=== PATIENT | female | born 1930 | race Caucasian/White ===

== ENCOUNTER 2018-05-31 15:01 | Emergency (ER) | payer MEDICARE, BC ==
[2018-05-31] MEDS ORDERED: ONDANSETRON HCL INJ/PF 4 MG/2 ML SDV IV ONE (15:20)
[2018-05-31] MEDS ORDERED: MORPHINE SULFATE 10 MG/ML INJ IV ONE (15:20)
[2018-05-31 16:00] LABS: ABSOLUTE EOSINOPHILS # (AUTO) 0.1 10^3/uL (0.0-0.6); ABSOLUTE MONOCYTES (AUTO) 0.5 10^3/uL (0.1-1.4); ABSOLUTE NEUT (AUTO) 3.1 10^3/uL (1.7-8.2); BASOPHILS % (AUTO) 0.9 % (0-2); EOSINOPHILS % (AUTO) 1.6 % (0-6); HEMATOCRIT 34.4 % (36.0-47.0); LYMPHOCYTES % (AUTO) 34.4 % (13-45); MEAN CORPUSCULAR HEMOGLOBIN 30.7 pg (27.0-33.4); MEAN CORPUSCULAR HGB CONC 34.7 g/dL (32.0-36.0); MEAN CORPUSCULAR VOLUME 88 fl (80-97); MONOCYTES % (AUTO) 9.2 % (3-13); PLATELET COUNT 230 10^3/uL (150-450); RED CELL DISTRIBUTION WIDTH 13.8 % (11.5-14.0); SEGMENTED NEUTROPHILS % (AUTO) 53.9 % (42-78); TOTAL CELLS COUNTED % (AUTO) 100 %; WHITE BLOOD COUNT 5.8 10^3/uL (4.0-10.5)
--- NOTE | 2018-05-31 16:14 | ER Document Report ---
ED General - General Chief Complaint: Abdominal Pain Stated Complaint: RIGHT SIDE PAIN Time Seen by Provider: 05/31/18 15:15 Mode of Arrival: Ambulatory Information source: Patient Notes: 88-year-old female with hyperthyroidism, hypertension, known AAA presents with complaint of right lower quadrant abdominal pain that started 1 day prior to arrival. Patient describes the pain as throbbing, stabbing without radiation. Patient denies any fever, chills, nausea, vomiting, chest pain, shortness of breath, back pain headache, weakness, difficulty with ambulation, slurred speech. Patient does state that she has not had a bowel movement in several days which is not normal for her. She is not currently taking any narcotic medications. Patient has not been seen by her vascular surgeon for approximately 1 year. She states that "he is too far away". - HPI Onset: Yesterday Onset/Duration: Gradual, Persistent Quality of pain: Stabbing Severity: Mild Associated symptoms: denies: Chest pain, Diarrhea, Nausea, Vomiting, Shortness of breath, Weakness Exacerbated by: Denies Relieved by: Denies Similar symptoms previously: Yes Recently seen / treated by doctor: No - Related Data Allergies/Adverse Reactions: iodine [Iodine] Allergy (Severe, Verified 05/31/18 15:03) Hives levofloxacin [From Levaquin] Allergy (Severe, Verified 05/31/18 15:03) tendonitis Shellfish * [Shellfish] Allergy (Severe, Verified 05/31/18 15:03) rash latex [Latex] Allergy (Verified 05/31/18 15:03) RED RASH/ITCHES Penicillins Allergy (Verified 05/31/18 15:03) Hives ivp dye Allergy (Severe, Uncoded 05/31/18 15:03) rash Past Medical History - General Information source: Patient, [facility] Records - Social History Smoking Status: Never Smoker Chew tobacco use (# tins/day): No Frequency of alcohol use: Rare Drug Abuse: None Lives with: Family Family History: Reviewed & Not Pertinent Patient has suicidal ideation: No Patient has homicidal ideation: No - Past Medical History Cardiac Medical History: Reports: Hx Hypertension - since 2003 Denies: Hx Coronary Artery Disease, Hx Heart Attack Pulmonary Medical History: Reports: Hx Bronchitis - 1 MONTH AGO...RESOLVED Denies: Hx Asthma, Hx COPD, Hx Pneumonia Neurological Medical History: Denies: Hx Cerebrovascular Accident, Hx Seizures Renal/ Medical History: Denies: Hx Peritoneal Dialysis GI Medical History: Reports: Hx Hiatal Hernia. Denies: Hx Hepatitis, Hx Ulcer Musculoskeletal Medical History: Reports Hx Arthritis Infectious Medical History: Denies: Hx Hepatitis Past Surgical History: Reports: Hx Cholecystectomy. Denies: Hx Mastectomy, Hx Open Heart Surgery, Hx Pacemaker - Immunizations Hx Diphtheria, Pertussis, Tetanus Vaccination: No Hx Pneumococcal Vaccination: 05/23/09 Review of Systems - Review of Systems Notes: PHYSICAL EXAMINATION: GENERAL: Well-appearing, well-nourished and in no acute distress. HEAD: Atraumatic, normocephalic. EYES: Pupils equal round and reactive to light, extraocular movements intact, conjunctiva are normal. ENT: Nares patent, oropharynx clear without exudates. Moist mucous membranes. NECK: Normal range of motion, supple without lymphadenopathy LUNGS: Breath sounds clear to auscultation bilaterally and equal. No wheezes rales or rhonchi. HEART: Regular rate and rhythm without murmurs ABDOMEN: Soft, nontender, nondistended abdomen. No guarding, no rebound. No masses appreciated. No pulsatile mass Female : Multiple nonthrombosed external hemorrhoids, no active bleeding. Brown stool which is occult negative Musculoskeletal: Normal range of motion, no pitting or edema. No cyanosis. NEUROLOGICAL: Cranial nerves grossly intact. Normal speech, normal gait. Normal sensory, motor exams PSYCH: Normal mood, normal affect. SKIN: Warm, Dry, normal turgor, no rashes or lesions noted. Physical Exam - Vital signs Vitals: Temp Pulse Resp BP Pulse Ox 98.2 F 58 L 18 131/73 H 99 05/31/18 15:15 05/31/18 15:15 05/31/18 15:15 05/31/18 15:15 05/31/18 15:15 Course - Re-evaluation Re-evalutation: Laboratory 05/31/18 05/31/18 05/31/18 15:48 15:48 17:06 WBC 5.8 RBC 3.90 Hgb 12.0 Hct 34.4 L MCV 88 MCH 30.7 MCHC 34.7 RDW 13.8 Plt Count 230 Seg Neutrophils % 53.9 Lymphocytes % 34.4 Monocytes % 9.2 Eosinophils % 1.6 Basophils % 0.9 Absolute Neutrophils 3.1 Absolute Lymphocytes 2.0 Absolute Monocytes 0.5 Absolute Eosinophils 0.1 Absolute Basophils 0.0 Sodium 136.8 L Potassium 4.1 Chloride 100 Carbon Dioxide 31 H Anion Gap 6 BUN 13 Creatinine 0.95 Est GFR ( Amer) > 60 Est GFR (Non-Af Amer) 56 L Glucose 90 Calcium 9.4 Total Bilirubin 1.4 H Direct Bilirubin 0.2 Neonat Total Bilirubin Not Reportable Neonat Direct Bilirubin Not Reportable Neonat Indirect Bili Not Reportable AST 30 ALT 14 Alkaline Phosphatase 83 Total Protein 7.7 Albumin 4.3 Lipase 70.9 Urine Color YELLOW Urine Appearance CLEAR Urine pH 6.0 Ur Specific [place] 1.017 Urine Protein NEGATIVE Urine Glucose (UA) NEGATIVE Urine Ketones NEGATIVE Urine Blood NEGATIVE Urine Nitrite NEGATIVE Urine Bilirubin NEGATIVE Urine Urobilinogen NEGATIVE Ur Leukocyte Esterase NEGATIVE Urine WBC (Auto) 1 Urine RBC (Auto) 0 Squamous Epi Cells Auto 1 Urine Ascorbic Acid NEGATIVE Abdomen/Pelvis CTA 05/31/18 16:02 IMPRESSION: 4.8 cm aneurysm of the infrarenal abdominal aorta. This is minimally larger than on the earlier study there is no evidence of bleeding. There is no dissection. 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 Chest/Abdomen CTA 05/31/18 16:02 IMPRESSION: 1. The thoracic aorta and the pulmonary arteries are normal. There is no aneurysm or dissection. There is no pulmonary embolus. 2. Prominent, heterogeneous left lobe of the thyroid gland. Temp Pulse Resp BP Pulse Ox 98.2 F 54 L 18 124/58 L 99 05/31/18 15:15 05/31/18 18:54 05/31/18 18:54 05/31/18 18:54 05/31/18 18:54 88-year-old female with hyperthyroidism, hypertension, known AAA presents with complaint of right lower quadrant abdominal pain that started 1 day prior to arrival. Patient describes the pain as throbbing, stabbing without radiation. Arrival vital signs stable. Patient does not appear toxic, dehydrated and she is in no acute distress. Patient has some mild discomfort in the right lower quadrant but reports history of appendectomy. Patient has a known AAA but states that she has not been evaluated by her vascular surgeon in a long time. Bedside ultrasound was performed and showed a an abdominal aortic aneurysm with greatest measurement of 4.4 cm. CTA of the chest abdomen pelvis was obtained and showed the aneurysm to be 4.8, infrarenal, mildly larger than earlier study without evidence of bleeding. She does not have evidence of dissection. Patient did not initially reports that she was having rectal bleeding but a rectal exam was performed which showed multiple external hemorrhoids with occult negative stool. Patient is alert, awake, very pleasant. When I brought up with the possibility of admission patient states that "I cannot do that right now I need to prepare myself". We were able to figure out that the patient's vascular surgeon is Dr. Mayes who our surgeons often use for vascular coverage. She was urged that she needs follow-up. She was also recommended to start MiraLAX for her constipation which she states she already has at home. Patient encouraged to return with any concerning symptoms. Patient was evaluated and treated as appropriate for the patient's presenting symptoms and complaint, with consideration of any critical or life threatening conditions that may be associated with their obtained history and exam as noted above. All results were discussed with patient. Patient provided the opportunity to ask questions, and express concerns. Patient was educated on treatments based on their presumed diagnosis as noted above. At this time we will discharge the patient with return precautions and follow-up recommendations. Verbal discharge instructions given a the bedside. Medication warnings reviewed. Patient is in agreement with this plan and has verbalized understanding of return precautions. After careful consideration I feel that that patient can be safely discharged from the emergency department, they were advised to followup with a primary care physician in 2-3 days. Dictation on this chart was performed using voice recognition software and may result in unintended grammatical, spelling, syntax or errors. 05/31/18 18:34 Patient's stool occult negative. 06/01/18 02:27 06/01/18 02:28 - Vital Signs Vital signs: Temp Pulse Resp BP Pulse Ox 98.2 F 54 L 18 124/58 L 99 05/31/18 15:15 05/31/18 18:54 05/31/18 18:54 05/31/18 18:54 05/31/18 18:54 - Laboratory Result Diagrams: 05/31/18 15:48 05/31/18 15:48 Laboratory results interpreted by me: 05/31/18 05/31/18 15:48 15:48 Hct 34.4 L Sodium 136.8 L Carbon Dioxide 31 H Est GFR (Non-Af Amer) 56 L Total Bilirubin 1.4 H - Diagnostic Test Radiology reviewed: Image reviewed, Reports reviewed Procedures - Ultrasound/Bedside Ultrasound/Bedside Time completed: 16:15 - Patient's aorta image at the bedside with a maximum diameter of 4.39. Ultrasound: Abnormal aorta Discharge - Discharge Clinical Impression: RLQ abdominal pain, External hemorrhoid AAA (abdominal aortic aneurysm) Qualifiers: Presence of rupture: without rupture Qualified Code(s): I71.4 - Abdominal aortic aneurysm, without rupture Constipation Qualifiers: Constipation type: other constipation type Qualified Code(s): K59.09 - Other constipation Condition: Good Disposition: HOME, SELF-CARE Instructions: Abdominal Pain ([facility]), Aortic Aneurysm ([facility]), Constipation ([facility]), Hemorrhoids ([facility]) Additional Instructions: Please follow-up with your vascular surgeon Dr. Bundy in the next 3-5 days. You have been provided your recent imaging studies. Please return if you experience worsening abdominal pain, rectal bleeding or any other symptoms that you are concerned about. Referrals: NINI RAPP MD [Primary Care Provider] - Follow up as needed
[2018-05-31 16:19] LABS: ALANINE AMINOTRANSFERASE 14 U/L (9-52); ALBUMIN 4.3 g/dL (3.5-5.0); ALKALINE PHOSPHATASE 83 U/L (38-126); ANION GAP 6 (5-19); ASPARTATE AMINO TRANSFERASE 30 U/L (14-36); BILIRUBIN,DIRECT 0.2 mg/dL (0.0-0.4); BILIRUBIN,TOTAL 1.4 mg/dL (0.2-1.3); BLOOD UREA NITROGEN 13 mg/dL (7-20); CALCIUM 9.4 mg/dL (8.4-10.2); CARBON DIOXIDE 31 mmol/L (22-30); CHLORIDE 100 mmol/L (98-107); GLUCOSE 90 mg/dL (75-110); LIPASE 70.9 U/L (23-300); POTASSIUM 4.1 mmol/L (3.6-5.0); SODIUM 136.8 mmol/L (137-145); TOTAL PROTEIN 7.7 g/dL (6.3-8.2)
[2018-05-31] MEDS ORDERED: DEXTROSE 50%-WATER 25 GM/50 ML DISP.SYRIN IV ONE (16:31)
[2018-05-31 17:27] LABS: APPEARANCE,URINE CLEAR; BILIRUBIN,URINE NEGATIVE (NEGATIVE); COLOR,URINE YELLOW; GLUCOSE, URINE NEGATIVE (NEGATIVE); KETONES,URINE NEGATIVE (NEGATIVE); LEUKOCYTE ESTERASE,URINE NEGATIVE (NEGATIVE); NITRITE,URINE NEGATIVE (NEGATIVE); PROTEIN,URINE NEGATIVE (NEGATIVE); URINE SPECIFIC GRAVITY 1.017; UROBILINOGEN,URINE NEGATIVE mg/dL (<2.0)
--- NOTE | 2018-05-31 17:39 | RADIOLOGY REPORT (SQ) ---
EXAM DESCRIPTION: CTA CHEST COMPLETED DATE/TIME: 05/31/2018 4:56 pm REASON FOR STUDY: abd pain known aaa COMPARISON: None. TECHNIQUE: CT scan of the chest performed using helical scanning technique with dynamic intravenous contrast injection. Images reviewed with lung, soft tissue and bone windows. Reconstructed coronal and sagittal MPR images reviewed. Additional 3 dimensional post-processing performed to develop Maximal Intensity Projection images (AZ P). All images stored on PACS. All CT scanners at this facility use dose modulation, iterative reconstruction, and/or weight based d osing when appropriate to reduce radiation dose to as low as reasonably achievable (ALARA). [facility]: Dose Right [facility]: CareDose [facility]: Dose Right [facility]: Teradose 4D [facility]: [employer] CONTRAST TYPE AND DOSE: 100 mL Omnipaque 350- low osmolar. Contrast bolus adequate for pulmonary arteries and aorta. RENAL FUNCTION: BUN 13 creatinine 0.95 RADIATION DOSE: . LIMITATIONS: None. FINDINGS: LUNGS AND PLEURA: No masses, infiltrates, or pneumothorax. No pleural effusions or pleura l calcifications. AORTA AND GREAT VESSELS: No aneurysm. No dissection. HEART: No pericardial effusion. Moderate to marked coronary artery calcifications. PULMONARY ARTERIES: No emboli visualized in the main pulmonary arteries or the segmental branches. HILAR AND MEDIASTINAL STRUCTURES: No identified masses or abnormal nodes. HARDWARE: None in the chest. UPPER ABDOMEN: See separate report of the CT of the abdomen. THYROID AND OTHER SOFT TISSUES: The left lobe of the thyroid is prominent and heterogeneous. BONES: No acute finding. 3D MIPS: Confirm above findings. OTHER: No other significant finding. IMPRESSION: 1. The thoracic aorta and the pulmonary arteries are normal. There is no aneurysm or d issection. There is no pulmonary embolus. 2. Prominent, heterogeneous left lobe of the thyroid gland. COMMENT: Quality ID # [id number]: Final reports with documentation of one or more dose reduction techniques (e.g., Automated exposure control, adjustment of the mA and/or kV according to patient size, use of iterative reconstruction technique) TECHNICAL DOCUMENTATION: JOB ID: [id number] [employer]- All Rights Reserved Reading location - IP/workstation name: [email or web address]
--- NOTE | 2018-05-31 17:53 | RADIOLOGY REPORT (SQ) ---
EXAM DESCRIPTION: CTA ABDOMEN/PELVIS W WO COMPLETED DATE/TIME: 05/31/2018 4:56 pm REASON FOR STUDY: abd pain known aaa COMPARISON: 12/25/2013 TECHNIQUE: CT scan of the abdominal aorta extending to the iliac bifurcation performed with intraven ous and oral contrast using helical scanning technique with dynamic intravenous contrast injection. I mages reviewed with lung, soft tissue, and bone windows. Reconstructed coronal and sagittal MPR image s reviewed. All images stored on PACS. Advanced 3D imaging as volume rendering, MIPS, SSD performed? yes All CT scanners at this facility use dose modulation, iterative reconstruction, and/or weight based d osing when appropriate to reduce radiation dose to as low as reasonably achievable (ALARA). [facility]: Dose Right [facility]: CareDose [facility]: Dose Right [facility]: Teradose 4D [facility]: [employer] CONTRAST TYPE AND DOSE: contrast/concentration: Isovue 350.00 mg/ml; Total Contrast Delivered: 100.0 ml; Total Saline Delivered: 90.0 ml 100 mL Omnipaque 350- low osmolar. RENAL FUNCTION: BUN 13 creatinine 0.95 LIMITATIONS: None. FINDINGS: AORTA AND VESSELS: There is a 48.3 mm aneurysm of the infrarenal abdominal aorta. This na rrows to a normal caliber at the bifurcation. There is no dissection. There is no evidence of bleed ing. 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 LUNG BASES: See separate report for CT of the chest LIVER: Normal size. No masses or dilated ducts. SPLEEN: Normal size. No focal lesions. PANCREAS: No masses. No significant calcifications. No adjacent inflammation or peripancreatic fluid collections. Pancreatic duct not dilated. GALLBLADDER: Surgically absent. ADRENAL GLANDS: No significant masses or asymmetry. RIGHT KIDNEY AND URETER: No mass, calculi or urinary tract obstruction. LEFT KIDNEY AND URETER: No mass, calculi or urinary tract obstruction. RETROPERITONEUM: No retroperitoneal adenopathy, hemorrhage or masses. BOWEL AND PERITONEAL CAVITY: No masses or inflammatory changes. No free fluid or peritoneal masses. APPENDIX: Surgically absent. ABDOMINAL WALL: No masses. No hernias. BONY STRUCTURES: No acute findings. 3-D IMAGING: Confirms the above findings. OTHER: No other significant finding. IMPRESSION: 4.8 cm aneurysm of the infrarenal abdominal aorta. This is minimally larger than on the earlier study there is no evidence of bleeding. There is no dissection. 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 TECHNICAL DOCUMENTATION: JOB ID: [id number] Quality ID # [id number]: Final reports with documentation of one or more dose reduction techniques (e.g., Au tomated exposure control, adjustment of the mA and/or kV according to patient size, use of iterative reconstruction technique) 2010 [employer]- All Rights Reserved Reading location - IP/workstation name: [email or web address]
[2018-05-31 18:55] VITALS: BP 124/58
== END 2018-05-31 18:55 | disposition home or self-care (01) ==
LOC: ER 15:01
DX: K59.00 Constipation, unspecified (principal); I71.4 Abdominal aortic aneurysm, without rupture; R10.31 Right lower quadrant pain; K64.4 Residual hemorrhoidal skin tags; I10 Essential (primary) hypertension; Z88.1 Allergy status to other antibiotic agents; Z91.013 Allergy to seafood; Z91.040 Latex allergy status; Z91.041 Radiographic dye allergy status; Z90.49 Acquired absence of other specified parts of digestive tract
CPT/HCPCS: 99284; 96372; 96374; 96375; 36415; 83690; 85025; 80053; 81001; 71275; 74174; J3490; J2270; J2405

== ENCOUNTER 2019-11-14 13:40 | Emergency (ER) | payer MEDICARE, BC ==
--- NOTE | 2019-11-14 14:34 | ER Document Report ---
ED General - General Chief Complaint: Sore Throat Stated Complaint: SORE THROAT Time Seen by Provider: 11/14/19 14:07 Primary Care Provider: NICOLE GUERRERO MD [Primary Care Provider] - Follow up as needed Information source: Patient - HPI Onset: Other - over the last few days Onset/Duration: Gradual Quality of pain: Achy Severity: Moderate Pain Level: 2 Associated symptoms: Diarrhea, Sore throat Exacerbated by: Denies Relieved by: Denies Similar symptoms previously: No Recently seen / treated by doctor: No Notes: 89 year old female with a history of HTN and Arthritis here in the ER for several days of a sore throat, cough, abdominal pains, and painful diarrhea. The patient denies fevers or chills but she has had some sweats. The patient says she may have had one sick contact (someone with a cough who helps her around the house). The patient denies nausea, vomiting, urinary symptoms, blood in her stools. - Related Data Allergies/Adverse Reactions: iodine [Iodine] Allergy (Severe, Verified 05/31/18 15:03) Hives levofloxacin [From Levaquin] Allergy (Severe, Verified 05/31/18 15:03) tendonitis Shellfish * [Shellfish] Allergy (Severe, Verified 05/31/18 15:03) rash latex [Latex] Allergy (Verified 05/31/18 15:03) RED RASH/ITCHES Penicillins Allergy (Verified 05/31/18 15:03) Hives ivp dye Allergy (Severe, Uncoded 05/31/18 15:03) rash Past Medical History - General Information source: Patient - Social History Smoking Status: Never Smoker Frequency of alcohol use: None Drug Abuse: None Family History: Reviewed & Not Pertinent Patient has suicidal ideation: No Patient has homicidal ideation: No - Past Medical History Cardiac Medical History: Reports: Hx Hypertension - since 2003 Denies: Hx Coronary Artery Disease, Hx Heart Attack Pulmonary Medical History: Reports: Hx Bronchitis - 1 MONTH AGO...RESOLVED Denies: Hx Asthma, Hx COPD, Hx Pneumonia Neurological Medical History: Denies: Hx Cerebrovascular Accident, Hx Seizures Renal/ Medical History: Denies: Hx Peritoneal Dialysis GI Medical History: Reports: Hx Hiatal Hernia. Denies: Hx Hepatitis, Hx Ulcer Musculoskeletal Medical History: Reports Hx Arthritis Infectious Medical History: Denies: Hx Hepatitis Past Surgical History: Reports: Hx Cholecystectomy, Hx Hysterectomy. Denies: Hx Mastectomy, Hx Open Heart Surgery, Hx Pacemaker - Immunizations Hx Diphtheria, Pertussis, Tetanus Vaccination: No Hx Pneumococcal Vaccination: 05/23/09 Review of Systems - Review of Systems Constitutional: No symptoms reported EENT: Throat pain Cardiovascular: No symptoms reported Respiratory: No symptoms reported Gastrointestinal: Abdominal pain, Diarrhea Genitourinary: No symptoms reported Female Genitourinary: No symptoms reported Musculoskeletal: No symptoms reported Skin: No symptoms reported Hematologic/Lymphatic: No symptoms reported Neurological/Psychological: No symptoms reported -: Yes All other systems reviewed and negative Physical Exam - Vital signs Vitals: Temp Pulse Resp BP Pulse Ox 98.2 F 54 L 18 118/60 96 11/14/19 13:40 11/14/19 13:40 11/14/19 13:40 11/14/19 13:40 11/14/19 13:40 - Notes Notes: GENERAL: Well-appearing, well-nourished and in no acute distress. HEAD: Atraumatic, normocephalic. EYES: Pupils equal round and reactive to light, extraocular movements intact, sclera anicteric, conjunctiva are normal. ENT: External ears normal, nares patent, oropharynx clear without exudates. Moist mucous membranes. NECK: Normal range of motion, supple without lymphadenopathy or JVD. LUNGS: Breath sounds clear to auscultation bilaterally and equal. No wheezes rales or rhonchi. HEART: Regular rate and rhythm without murmurs, rubs or gallops. ABDOMEN: Soft, moderate tenderness, normoactive bowel sounds. No guarding, no rebound. No masses appreciated. EXTREMITIES: Normal range of motion, no pitting or edema. No clubbing or cyanosis. NEUROLOGICAL: Cranial nerves II through XII grossly intact. Normal speech, normal gait. PSYCH: Normal mood, normal affect. SKIN: Warm, Dry, normal turgor, no rashes or lesions noted. Course - Re-evaluation Re-evalutation: 11/15/19 05:44 The patient had no abnormalities on CT of her abdomen/pelvis. Patient's chest xray was clear. Patients rapid strep was negative. Patient told she may have viral syndrome causing her symptoms. She was told to drink plenty of fluids in the days to come and to follow up with her PCP if symptoms persisted. - Vital Signs Vital signs: Temp Pulse Resp BP Pulse Ox 98.1 F 51 L 18 167/68 H 96 11/14/19 18:45 11/14/19 18:45 11/14/19 18:45 11/14/19 18:45 11/14/19 18:45 - Laboratory Result Diagrams: 11/14/19 14:45 11/14/19 14:45 Laboratory results interpreted by me: 11/14/19 11/14/19 11/14/19 14:45 14:45 16:45 Hgb 11.8 L Hct 33.9 L Sodium 133.8 L Est GFR (MDRD) Non-Af 51 L Ur Leukocyte Esterase TRACE H - Diagnostic Test Radiology reviewed: Image reviewed, Reports reviewed Discharge - Discharge Clinical Impression: Pharyngitis Qualifiers: Pharyngitis/tonsillitis etiology: unspecified etiology Qualified Code(s): J02.9 - Acute pharyngitis, unspecified Abdominal pain Qualifiers: Abdominal location: lower abdomen, unspecified Qualified Code(s): R10.30 - Lower abdominal pain, unspecified Condition: Stable Disposition: HOME, SELF-CARE Instructions: Abdominal Pain ([facility]), Diarrhea, Nonspecific ([facility]), Sore Throat ([facility]), Viral Syndrome ([facility]) Additional Instructions: Drink plenty of fluids in the days to come. Use Tylenol and Motrin for abdominal pain. Use over the counter cough medication and sore throat medications as needed. Follow up with your primary care doctor if symptoms persist. Return to an ER for trouble breathing, uncontrolled pain, if you are worse in anyway. You tested negative for Strep Throat. Your CT scan showed no sign of an abdominal infection but your abdominal aortic aneursym has enlarged since 2013. Follow up with a Vascular Surgeon. Referrals: NICOLE GUERRERO MD [Primary Care Provider] - Follow up as needed
[2019-11-14 15:10] LABS: ABSOLUTE EOSINOPHILS # (AUTO) 0.1 10^3/uL (0.0-0.6); ABSOLUTE LYMPHOCYTES (AUTO) 1.3 10^3/uL (0.5-4.7); ABSOLUTE MONOCYTES (AUTO) 0.5 10^3/uL (0.1-1.4); ABSOLUTE NEUT (AUTO) 3.4 10^3/uL (1.7-8.2); BASOPHILS % (AUTO) 0.7 % (0-2); EOSINOPHILS % (AUTO) 1.7 % (0-6); HEMATOCRIT 33.9 % (36.0-47.0); HEMOGLOBIN 11.8 g/dL (12.0-15.5); LYMPHOCYTES % (AUTO) 24.6 % (13-45); MEAN CORPUSCULAR HEMOGLOBIN 30.6 pg (27.0-33.4); MEAN CORPUSCULAR HGB CONC 34.8 g/dL (32.0-36.0); MEAN CORPUSCULAR VOLUME 88 fl (80-97); MONOCYTES % (AUTO) 10.1 % (3-13); PLATELET COUNT 181 10^3/uL (150-450); RED BLOOD COUNT 3.87 10^6/uL (3.72-5.28); RED CELL DISTRIBUTION WIDTH 13.8 % (11.5-14.0); SEGMENTED NEUTROPHILS % (AUTO) 62.9 % (42-78); TOTAL CELLS COUNTED % (AUTO) 100 %; WHITE BLOOD COUNT 5.4 10^3/uL (4.0-10.5)
[2019-11-14 16:26] LABS: ALBUMIN 3.8 g/dL (3.5-5.0); ALKALINE PHOSPHATASE 43 U/L (38-126); ANION GAP 5 (5-19); ASPARTATE AMINO TRANSFERASE 20 U/L (14-36); BILIRUBIN,TOTAL 1.3 mg/dL (0.2-1.3); BLOOD UREA NITROGEN 19 mg/dL (7-20); CALCIUM 9.2 mg/dL (8.4-10.2); CARBON DIOXIDE 29 mmol/L (22-30); CHLORIDE 100 mmol/L (98-107); GLUCOSE 104 mg/dL (75-110); POTASSIUM 4.4 mmol/L (3.6-5.0); TOTAL PROTEIN 6.5 g/dL (6.3-8.2)
[2019-11-14 17:40] LABS: APPEARANCE,URINE CLEAR; BILIRUBIN,URINE NEGATIVE (NEGATIVE); COLOR,URINE YELLOW; GLUCOSE, URINE NEGATIVE (NEGATIVE); KETONES,URINE NEGATIVE (NEGATIVE); LEUKOCYTE ESTERASE,URINE TRACE (NEGATIVE); NITRITE,URINE NEGATIVE (NEGATIVE); PROTEIN,URINE NEGATIVE (NEGATIVE); URINE SPECIFIC GRAVITY 1.009; UROBILINOGEN,URINE NEGATIVE mg/dL (<2.0)
--- NOTE | 2019-11-14 18:06 | RADIOLOGY REPORT (SQ) ---
EXAM DESCRIPTION: CT ABD/PELVIS ORAL ONLY IMAGES COMPLETED DATE/TIME: 11/14/2019 4:45 pm REASON FOR STUDY: eval for diverticulitis COMPARISON: CT abdomen and pelvis, 12/25/2013. TECHNIQUE: CT scan of the abdomen and pelvis performed without intravenous or oral contrast. Images reviewed with lung, soft tissue, and bone windows. Reconstructed coronal and sagittal MPR images revi ewed. All images stored on PACS. All CT scanners at this facility use dose modulation, iterative reconstruction, and/or weight based d osing when appropriate to reduce radiation dose to as low as reasonably achievable (ALARA). [facility]: Dose Right [facility]: CareDose [facility]: Dose Right [facility]: Teradose 4D [facility]: Smart [employer] RADIATION DOSE: CT Rad equipment meets quality standard of care and radiation dose reduction techniq ues were employed. CTDIvol: 4.9 mGy. DLP: 237 mGy-cm.mGy. LIMITATIONS: None. FINDINGS: LOWER CHEST: Small subpleural nodules along the posterior right lower lobe are stable from prior. No focal consolidation or pleural effusion. NON-CONTRASTED LIVER, SPLEEN, ADRENALS: Evaluation limited by lack of IV contrast. No identified sign ificant masses. PANCREAS: No masses. No peripancreatic inflammatory changes. GALLBLADDER: Surgically absent. RIGHT KIDNEY AND URETER: No suspicious masses. Assessment limited by lack of IV contrast. No signif icant calcifications. No hydronephrosis or hydroureter. LEFT KIDNEY AND URETER: No suspicious masses. Assessment limited by lack of IV contrast. No signifi cant calcifications. No hydronephrosis or hydroureter. AORTA AND RETROPERITONEUM: There is an infrarenal abdominal aortic aneurysm which has increased in si ze from prior now measuring 5 x 4.7 cm and extending 6.7 cm cranial caudal. Previously this measured 0.7 x 4.5 cm on 12/25/2013. There is no periaortic fluid or inflammatory change. Extensive atheroscl erotic calcification of the aorta and iliac arteries. BOWEL AND PERITONEAL CAVITY: Status post right hemicolectomy with patent anastomosis. There is no sasha wel obstruction. No bowel wall thickening. No significant diverticular disease. No inflammatory ch iveth, free fluid or pneumoperitoneum. APPENDIX: Surgically absent. PELVIS, BLADDER, AND ABDOMINAL WALL:Post hysterectomy. Calcified pelvic phleboliths. Urinary bladde r has normal contour and appearance. No pelvic adenopathy. BONES: Kyphoplasty at T11 unchanged from prior. Multilevel spondylosis and degenerative disc disease . Schmorl's node superior endplate L3. Subchondral sclerosis and cystic change at the inferior endp late L5 and superior endplate S1. No suspicious bone lesions. OTHER: No other significant finding. IMPRESSION: 1. No evidence of diverticulitis. No acute abnormality in the abdomen or pelvis to explain the patie nt's symptoms. 2. Status post right hemicolectomy with patent anastomosis. No bowel obstruction. 3. Infrarenal abdominal aortic aneurysm has increased in size since previous examination in 2013. No periaortic fluid or inflammatory change. COMMENT: Quality ID # [id number]: Final reports with documentation of one or more dose reduction techniques (e.g., Automated exposure control, adjustment of the mA and/or kV according to patient size, use of iterative reconstruction technique) TECHNICAL DOCUMENTATION: JOB ID: [id number] 2010 [employer]- All Rights Reserved Reading location - IP/workstation name: [id number]
[2019-11-14 18:47] VITALS: BP 167/68
== END 2019-11-14 18:56 | disposition home or self-care (01) ==
LOC: ER 13:40
DX: J02.9 Acute pharyngitis, unspecified (principal); R10.30 Lower abdominal pain, unspecified; R05 Cough; R10.9 Unspecified abdominal pain; R19.7 Diarrhea, unspecified; Z88.8 Allergy status to other drugs, medicaments and biological substances; Z88.0 Allergy status to penicillin
CPT/HCPCS: 36415; 74176; 80053; 81001; 83690; 85025; 87045; 87070; 87086; 87205; 87880; 99283

== ENCOUNTER 2020-01-21 14:58 | Emergency (ER) | payer MEDICARE, BC ==
[2020-01-21] MEDS ORDERED: NORMAL SALINE 1000 ML 1,000 ML IV ONE (16:15)
--- NOTE | 2020-01-21 16:17 | ER Document Report ---
ED Medical Screen (RME) - General Chief Complaint: Low Blood Pressure Stated Complaint: BLOOD PRESSURE,BACK PAIN Time Seen by Provider: 01/21/20 16:14 Primary Care Provider: LEXIE KAUFMAN PA-C [Primary Care Provider] - Follow up as needed Information source: Patient Notes: Patient presents with left flank and left lower quadrant abdominal pain for the past 2 days. Patient went to her doctor's office today and was found to be hypotensive with blood pressure 80s over 40s. Patient has not had any fever nausea or vomiting. Patient has a history of dementia, hypertension and CAD. Patient did receive her blood pressure medication this morning. I have greeted and performed a rapid initial assessment of this patient. A comprehensive ED assessment and evaluation of the patient, analysis of test results and completion of the medical decision making process will be conducted by additional ED providers. - Related Data Allergies/Adverse Reactions: iodine [Iodine] Allergy (Severe, Verified 01/21/20 16:04) Hives levofloxacin [From Levaquin] Allergy (Severe, Verified 01/21/20 16:04) tendonitis Shellfish * [Shellfish] Allergy (Severe, Verified 01/21/20 16:04) rash latex [Latex] Allergy (Verified 01/21/20 16:04) RED RASH/ITCHES Penicillins Allergy (Verified 01/21/20 16:04) Hives ivp dye Allergy (Severe, Uncoded 01/21/20 16:04) rash Past Medical History - Social History Frequency of alcohol use: None Drug Abuse: None - Past Medical History Cardiac Medical History: Reports: Hx Hypertension - since 2003 Denies: Hx Coronary Artery Disease, Hx Heart Attack Pulmonary Medical History: Reports: Hx Bronchitis - 1 MONTH AGO...RESOLVED Denies: Hx Asthma, Hx COPD, Hx Pneumonia Neurological Medical History: Denies: Hx Cerebrovascular Accident, Hx Seizures Renal/ Medical History: Denies: Hx Peritoneal Dialysis GI Medical History: Reports: Hx Hiatal Hernia. Denies: Hx Hepatitis, Hx Ulcer Musculoskeltal Medical History: Reports Hx Arthritis Infectious Medical History: Denies: Hx Hepatitis Past Surgical History: Reports: Hx Cholecystectomy, Hx Hysterectomy. Denies: Hx Mastectomy, Hx Open Heart Surgery, Hx Pacemaker - Immunizations Hx Diphtheria, Pertussis, Tetanus Vaccination: No Physical Exam - Vital signs Vitals: Temp Pulse Resp BP Pulse Ox 98.4 F 66 18 97/86 H 100 08/31/20 15:37 01/21/20 15:37 01/21/20 15:37 01/21/20 15:37 01/21/20 15:37 - Abdominal Tenderness: Tender - Lower quadrant - Back Back: CVA tenderness - Left Course - Vital Signs Vital signs: Temp Pulse Resp BP Pulse Ox 98.4 F 66 18 97/86 H 100 01/21/20 15:37 01/21/20 15:37 01/21/20 15:37 01/21/20 15:37 01/21/20 15:37 Doctor's Discharge - Discharge Referrals: LEXIE KAUFMAN, YEIMI [Primary Care Provider] - Follow up as needed
--- NOTE | 2020-01-21 17:45 | RADIOLOGY REPORT (SQ) ---
EXAM DESCRIPTION: CT ABD/PELVIS NO ORAL OR IV IMAGES COMPLETED DATE/TIME: 01/21/2020 4:05 pm REASON FOR STUDY: L flank, LLQ pain, hypotension COMPARISON: 11/14/2019. TECHNIQUE: CT scan of the abdomen and pelvis performed without intravenous or oral contrast. Images reviewed with lung, soft tissue, and bone windows. Reconstructed coronal and sagittal MPR images revi ewed. All images stored on PACS. All CT scanners at this facility use dose modulation, iterative reconstruction, and/or weight based d osing when appropriate to reduce radiation dose to as low as reasonably achievable (ALARA). [facility]: Dose Right [facility]: CareDose [facility]: Dose Right [facility]: Teradose 4D [facility]: Smart [employer] RADIATION DOSE: CT Rad equipment meets quality standard of care and radiation dose reduction techniq ues were employed. CTDIvol: 5.4 mGy. DLP: 260 mGy-cm.mGy. LIMITATIONS: None. FINDINGS: LOWER CHEST: No significant findings. No nodules or infiltrates. NON-CONTRASTED LIVER, SPLEEN, ADRENALS: Evaluation limited by lack of IV contrast. No identified sign ificant masses. PANCREAS: No masses. No peripancreatic inflammatory changes. GALLBLADDER: No identified stones by CT criteria. No inflammatory changes to suggest cholecystitis. RIGHT KIDNEY AND URETER: No suspicious masses. Assessment limited by lack of IV contrast. No signif icant calcifications. No hydronephrosis or hydroureter. LEFT KIDNEY AND URETER: No suspicious masses. Assessment limited by lack of IV contrast. No signifi cant calcifications. No hydronephrosis or hydroureter. AORTA AND RETROPERITONEUM: There is an infrarenal abdominal aortic aneurysm measuring 5 x 4.7 cm and extending 6.7 cm craniocaudal, unchanged from prior examination. No periaortic fluid or inflammatory change. Evaluation for dissection is limited due to lack of IV contrast. BOWEL AND PERITONEAL CAVITY: Status post right hemicolectomy with patent anastomosis. No bowel obstr uction. No bowel wall thickening. No significant inflammatory change. No ascites or pneumoperitone um. APPENDIX: Surgically absent. PELVIS, BLADDER, AND ABDOMINAL WALL:Calcified pelvic phleboliths. Urinary bladder is decompressed. No pelvic mass or adenopathy. BONES: There is a very subtle sclerotic line at the inferior endplate of L1, new from prior examinati on, possibly representing a subtle nondisplaced compression fracture. No significant height loss. K yphoplasty at T11 is stable. Spondylosis with subchondral sclerosis and cystic change at the endplat es of L3, L5 and S1, stable. Degenerative disc disease and facet arthropathy in the lower lumbar spi ne is also stable. The pelvis is intact. No suspicious bone lesions. OTHER: No other significant finding. IMPRESSION: 1. Very subtle sclerotic line at the L1 is new since previous examination and may represent a subtle compression fracture with no significant loss of vertebral body height. MRI may provide additional i nformation regarding acuity. 2. No renal or ureteral calculi. 3. Infrarenal abdominal aortic aneurysm is stable. No periaortic or retroperitoneal fluid. COMMENT: Quality ID # [id number]: Final reports with documentation of one or more dose reduction techniques (e.g., Automated exposure control, adjustment of the mA and/or kV according to patient size, use of iterative reconstruction technique) TECHNICAL DOCUMENTATION: JOB ID: [id number] 2010 [employer]- All Rights Reserved Reading location - IP/workstation name: [id number]
[2020-01-21 18:04] LABS: ABSOLUTE LYMPHOCYTES (AUTO) 1.4 10^3/uL (0.5-4.7); ABSOLUTE MONOCYTES (AUTO) 0.5 10^3/uL (0.1-1.4); ABSOLUTE NEUT (AUTO) 4.7 10^3/uL (1.7-8.2); BASOPHILS % (AUTO) 0.4 % (0-2); EOSINOPHILS % (AUTO) 0.3 % (0-6); HEMATOCRIT 34.9 % (36.0-47.0); HEMOGLOBIN 12.5 g/dL (12.0-15.5); LYMPHOCYTES % (AUTO) 21.2 % (13-45); MEAN CORPUSCULAR HEMOGLOBIN 31.7 pg (27.0-33.4); MEAN CORPUSCULAR HGB CONC 35.7 g/dL (32.0-36.0); MEAN CORPUSCULAR VOLUME 89 fl (80-97); MONOCYTES % (AUTO) 8.1 % (3-13); PLATELET COUNT 245 10^3/uL (150-450); RED BLOOD COUNT 3.94 10^6/uL (3.72-5.28); RED CELL DISTRIBUTION WIDTH 13.9 % (11.5-14.0); TOTAL CELLS COUNTED % (AUTO) 100 %; WHITE BLOOD COUNT 6.6 10^3/uL (4.0-10.5)
--- NOTE | 2020-01-21 18:16 | EKG REPORT ---
SEVERITY:- ABNORMAL ECG - SINUS RHYTHM ATRIAL PREMATURE COMPLEX BORDERLINE INFERIOR Q WAVES BORDERLINE R WAVE PROGRESSION, ANTERIOR LEADS, CONSIDER OLD ANTEROSEPTAL [place] BORDERLINE PROLONGED QT INTERVAL : Confirmed by: Kai Anthony MD 21-Jan-2020 18:15:19
[2020-01-21 18:44] LABS: ALBUMIN 4.3 g/dL (3.5-5.0); ALKALINE PHOSPHATASE 58 U/L (38-126); ANION GAP 9 (5-19); ASPARTATE AMINO TRANSFERASE 23 U/L (14-36); BILIRUBIN,DIRECT 0.3 mg/dL (0.0-0.4); BILIRUBIN,TOTAL 1.5 mg/dL (0.2-1.3); BLOOD UREA NITROGEN 22 mg/dL (7-20); CALCIUM 9.5 mg/dL (8.4-10.2); CARBON DIOXIDE 27 mmol/L (22-30); CHLORIDE 100 mmol/L (98-107); GLUCOSE 93 mg/dL (75-110); TOTAL PROTEIN 7.2 g/dL (6.3-8.2)
[2020-01-21] MEDS ORDERED: NORMAL SALINE 500 ML IV ONE (20:24)
[2020-01-21] MEDS ORDERED: HYDROCODONE/ACETAMINOPHEN 5-325 MG TABLET PO ONE (20:25)
--- NOTE | 2020-01-21 20:59 | ER Document Report ---
ED General - General Chief Complaint: Low Blood Pressure Stated Complaint: BLOOD PRESSURE,BACK PAIN Time Seen by Provider: 01/21/20 16:14 Primary Care Provider: LEXIE KAUFMAN PA-C [Primary Care Provider] - Follow up as needed Mode of Arrival: Wheelchair Information source: Patient Notes: Patient is a 89-year-old female was brought into the emergency room by her d lyleer after visiting her primary care provider this morning. Patient's daughter states that she went to her house to pick her up and found her in bed complaining of pain to her back and weakness. They went to her doctor's office where they found her blood pressure to be 90 systolic and they sent her to the emergency room. Patient only has a past medical history pertinent for hypertension she denies any history of heart problems. She also is on no diuretics and takes very little medications. She has had no nausea vomiting or diarrhea for the past several weeks. Patient states that her back recently started hurting more but she has not had any falls and she is monitored fairly much 24 7. She has a history of compression fractures in the back. She does state that she is not eating and drinking appropriately and states only had 1 glass of water all day yesterday. TRAVEL OUTSIDE OF THE [place] IN LAST 30 DAYS: No - HPI Onset: This morning Onset/Duration: Sudden Quality of pain: Sharp, Throbbing Severity: Moderate Pain Level: 3 Associated symptoms: Weakness Exacerbated by: Movement, Walking Relieved by: Denies Similar symptoms previously: Yes Recently seen / treated by doctor: No - Related Data Allergies/Adverse Reactions: iodine [Iodine] Allergy (Severe, Verified 01/21/20 16:04) Hives levofloxacin [From Levaquin] Allergy (Severe, Verified 01/21/20 16:04) tendonitis Shellfish * [Shellfish] Allergy (Severe, Verified 01/21/20 16:04) rash latex [Latex] Allergy (Verified 01/21/20 16:04) RED RASH/ITCHES Penicillins Allergy (Verified 01/21/20 16:04) Hives ivp dye Allergy (Severe, Uncoded 01/21/20 16:04) rash Past Medical History - General Information source: Patient - Social History Smoking Status: Never Smoker Frequency of alcohol use: None Drug Abuse: None Lives with: Family Family History: Reviewed & Not Pertinent - Past Medical History Cardiac Medical History: Reports: Hx Hypertension - since 2003 Denies: Hx Coronary Artery Disease, Hx Heart Attack Pulmonary Medical History: Reports: Hx Bronchitis - 1 MONTH AGO...RESOLVED Denies: Hx Asthma, Hx COPD, Hx Pneumonia Neurological Medical History: Denies: Hx Cerebrovascular Accident, Hx Seizures Renal/ Medical History: Denies: Hx Peritoneal Dialysis GI Medical History: Reports: Hx Hiatal Hernia. Denies: Hx Hepatitis, Hx Ulcer Musculoskeletal Medical History: Reports Hx Arthritis Infectious Medical History: Denies: Hx Hepatitis Past Surgical History: Reports: Hx Cholecystectomy, Hx Hysterectomy. Denies: Hx Mastectomy, Hx Open Heart Surgery, Hx Pacemaker - Immunizations Hx Diphtheria, Pertussis, Tetanus Vaccination: No Hx Pneumococcal Vaccination: 05/23/09 Review of Systems - Review of Systems Constitutional: See HPI, Weakness - , Loaded already they good luck EENT: No symptoms reported Cardiovascular: No symptoms reported Respiratory: No symptoms reported Gastrointestinal: No symptoms reported Genitourinary: See HPI, Dysuria Female Genitourinary: No symptoms reported Musculoskeletal: Back pain Skin: No symptoms reported Hematologic/Lymphatic: No symptoms reported Neurological/Psychological: No symptoms reported -: Yes All other systems reviewed and negative Physical Exam - Vital signs Vitals: Temp Pulse Resp BP Pulse Ox 98.4 F 66 18 97/86 H 100 01/21/20 15:37 01/21/20 15:37 01/21/20 15:37 01/21/20 15:37 01/21/20 15:37 Interpretation: Hypotensive - Notes Notes: PHYSICAL EXAMINATION: GENERAL: Patient is a well-nourished well-developed 89-year-old female no apparent distress on physical exam this evening. HEAD: Atraumatic, normocephalic. EYES: Pupils equal round and reactive to light, extraocular movements intact, conjunctiva are normal. ENT: Nares patent, oropharynx clear without exudates. Moist mucous membranes. NECK: Normal range of motion, supple without lymphadenopathy LUNGS: Breath sounds clear to auscultation bilaterally and equal. No wheezes rales or rhonchi. HEART: Regular rate and rhythm without murmurs ABDOMEN: Examination patient's abdomen shows she does have some tenderness suprapubically to palpation. And she has some mild tenderness to the left lateral lower side. She has bowel sounds present all 4 quads. Female : deferred Musculoskeletal: Examination of patient's back does show some mildly reproducible tenderness around L1-L2. She has good sensation from the ankles to the groin as she does from the outside ankles to the hips bilaterally. Patient has full range of motion of bilateral lower extremities. She has negative straight leg raises bilaterally. Patient has good strength against resistance and lower extremities. There is no sign of saddle paresthesia and no sign of cauda equina syndrome. Patient has not lost any urine or stool. NEUROLOGICAL: Normal speech, normal gait. Normal sensory, motor exams PSYCH: Normal mood, normal affect. SKIN: Warm, Dry, normal turgor, no rashes or lesions noted. Course - Re-evaluation Re-evalutation: 01/21/20 22:07 Patient was found to have a slight urinary tract infection. With the second 500 mL bolus of fluids patient's blood pressure really did stabilize well 151/80. I have talked to the daughter the possibility since someone does arrange for medications on a weekly basis that it might be she needs to check the medications make sure there was no doubling up up a blood pressure pill. Also instructed the daughter that she really needs to increase her fluid intake as well. As for the back on CT it shows a possible new small hairline compression fracture with no loss of height in the vertebral bodies she has seen Dr. Jauregui at the pain [facility] clinic several years ago had kyphoplasty done and she will see if he is still in practice. I am going to also give her the name of the orthopedist vocational services specialist for follow-up if she needs it. 01/21/20 22:08 Daughter states that she is also taken Ultram in the past and it does not affect her sensorium so at this time I will write her a few pills for the next couple of days. - Vital Signs Vital signs: Temp Pulse Resp BP Pulse Ox 98.4 F 66 16 152/81 H 96 01/21/20 15:37 01/21/20 15:37 01/21/20 21:01 01/21/20 21:01 01/21/20 21:01 - Laboratory Result Diagrams: 01/21/20 17:19 01/21/20 17:19 Laboratory results interpreted by me: 01/21/20 01/21/20 01/21/20 17:19 17:19 20:41 Hct 34.9 L Sodium 136.4 L BUN 22 H Est GFR (MDRD) Non-Af 58 L Total Bilirubin 1.5 H Urine Protein 30 H Urine Ketones 20 H Urine Urobilinogen 2.0 H Ur Leukocyte Esterase MODERATE H Urine Ascorbic Acid 20 H Discharge - Discharge Clinical Impression: Hypotension Qualifiers: Hypotension type: unspecified hypotension type Qualified Code(s): I95.9 - Hy potension, unspecified Urinary tract infection Qualifiers: Urinary tract infection type: acute cystitis Hematuria presence: without hematuria Qualified Code(s): N30.00 - Acute cystitis without hematuria Condition: Stable Disposition: HOME, SELF-CARE Instructions: Urinary Tract Infection ([facility]), Hypotension ([facility]), Compression Fracture of the Spine ([facility]) Additional Instructions: As we discussed take the antibiotics as directed and complete the full course. Contact your primary care for follow-up within the next week. Monitor the pills and recheck to make sure there is not a overtaking of hypertension medication that may have caused the hypotension this time. As for the back problems I bin rust consult with her primary care and/or consult to see if Dr. Jauregui is still in business and follow-up with him. Should you have any concerns or problems you can always return to ER for reevaluation. Prescriptions: Fluconazole [Diflucan 100 Mg Tablet] 100 mg PO DAILY #1 tablet Cephalexin Monohydrate [Keflex 500 mg Capsule] 500 mg PO BID 5 Days #14 capsule Tramadol HCl [Ultram 50 mg Tablet] 50 mg PO TID #20 tab Referrals: LEXIE KAUFMAN PA-C [Primary Care Provider] - Follow up as needed TON DOMÍNGUEZ DO [ACTIVE STAFF] - Follow up as needed
[2020-01-21 21:05] LABS: APPEARANCE,URINE SLIGHTLY-CLOUDY; BILIRUBIN,URINE NEGATIVE (NEGATIVE); CALCIUM OXALATE CRYSTALS,URINE RARE /HPF; COLOR,URINE AMBER; GLUCOSE, URINE NEGATIVE (NEGATIVE); KETONES,URINE 20 mg/dL (NEGATIVE); LEUKOCYTE ESTERASE,URINE MODERATE (NEGATIVE); NITRITE,URINE NEGATIVE (NEGATIVE); PROTEIN,URINE 30 mg/dL (NEGATIVE)
[2020-01-21] MEDS ORDERED: CEFTRIAXONE 1 GM/D5W RTU 1 GM/50 ML RTUPB IV ONE (21:37)
[2020-01-21 22:33] VITALS: BP 142/78
== END 2020-01-21 22:50 | disposition home or self-care (01) ==
LOC: ER 14:58
DX: N30.00 Acute cystitis without hematuria (principal); I95.9 Hypotension, unspecified; M54.9 Dorsalgia, unspecified; R53.1 Weakness; I10 Essential (primary) hypertension; Z88.1 Allergy status to other antibiotic agents; Z91.013 Allergy to seafood; Z91.040 Latex allergy status; Z88.0 Allergy status to penicillin; Z91.041 Radiographic dye allergy status
CPT/HCPCS: 93005; 99285; 96361; 96365; 36415; 87040; 83690; 83735; 85025; 80053; 81001; 74176; 93010; J7030; J7040; J0696; A9270